=== PATIENT | male | born 1935 | race Caucasian/White ===

== ENCOUNTER 2020-06-13 16:39 | Inpatient (IN) | payer BC ==
[~2020-06-13] VITALS: Ht 170.2 cm; Wt 101.2 kg
[~2020-06-13 16:39] MED LIST: ADULT LOW DOSE81 MG PO; ALDACTONE25 MG PO; ATENOLOL 50MG T50 M1 PO; DITROPAN XL15 MG PO; EQ VISION FORM1 EACH PO; FIBER THERAPY PO; FISH OIL 1,2001 EAC4 PO; GLUCOSAMINE 1,1 EACH PO; K-DUR 20 MEQ T20 MEQ PO; KOMBIGLYZE XR1 EAC1 PO; NEXIUM20 M1 PO; NORCO 5-325 TA1 EACH PO; XALATAN2.5 ML PO; ZOCOR40 MG PO
[2020-06-13 16:51] VITALS: BP 131/82
[2020-06-13 18:40] LABS: URINE BILIRUBIN NEGATIVE (Negative); URINE BLOOD 2+ (Negative); URINE CLARITY CLEAR; URINE COLOR YELLOW; URINE GLUCOSE-RANDOM NEGATIVE (Negative); URINE KETONES TRACE (Negative); URINE LEUKOCYTES-REFLEX NEGATIVE (Negative); URINE NITRITE-REFLEX NEGATIVE (Negative); URINE PROTEIN NEGATIVE (Negative); URINE SPECIFIC GRAVITY >= 1.030 (1.005-1.030); URINE UROBILINOGEN 0.2 E.U./dl (0.2-1.0)
[2020-06-13 18:43] LABS: CALCIUM 9.2 mg/dL (8.5-10.1); CREATININE 1.3 mg/dL (0.6-1.3); POTASSIUM 4.4 mmol/L (3.5-5.1)
[2020-06-13 18:47] LABS: ALBUMIN 3.6 g/dL (3.4-5.0); TOTAL BILIRUBIN 0.8 mg/dL (<0.1-1.0); TOTAL PROTEIN 6.9 g/dL (6.4-8.2)
[2020-06-13 18:54] LABS: CASTS None Seen /LPF (None Seen); CRYSTALS None Seen /LPF (None Seen); SQUAMOUS 0-3 Few /LPF (0-3)
[2020-06-13 18:55] LABS: URINE WBC-REFLEX 0-5 Rare /HPF (0-5)
[2020-06-13 18:56] LABS: BACTERIA-REFLEX 1-9 Few /HPF (None Seen); MUCUS >6 Heavy strn/LPF (None Seen)
[2020-06-13 19:23] LABS: ABSOLUTE BASOPHILS 0.2 thou/uL (0.0-0.2); ABSOLUTE EOSINOPHILS 0.1 thou/uL (0.0-0.7); ABSOLUTE LYMPHOCYTES 1.4 thou/uL (0.8-5.3); ABSOLUTE MONOCYTES 0.4 thou/uL (0.0-1.2); ABSOLUTE NEUTROPHILS 4.8 thou/uL (1.6-8.1); BASOPHILS 2.7 %; EOSINOPHILS 2.1 %; HEMATOCRIT 39.7 % (42.0-52.0); HEMOGLOBIN 13.5 gm/dL (14.0-18.0); LYMPHOCYTES 19.7 %; MCH 31.9 pg (26.0-34.0); MCHC 33.9 g/dL (28.0-37.0); MCV 94.1 fL (80.0-100.0); MONOCYTES 6.2 %; MPV 8.6 fl. (7.2-11.1); NUCLEATED RBCS 0 /100WBC; PLATELET COUNT* 127 thou/uL (150-400); POLYS 69.3 %; RBC 4.22 mil/uL (4.50-6.00); RDW-CV 13.8 % (10.5-14.5); WBC 6.9 thou/uL (4.0-11.0)
[2020-06-13 22:48] LABS: APTT 23.2 Seconds (25.0-31.3); INR 1.3; PROTIME 13.3 Seconds (9.20-11.50)
[2020-06-13 23:37] VITALS: BP 146/70
[2020-06-14 00:30] VITALS: BP 157/71
[2020-06-14 04:44] VITALS: BP 140/70
[2020-06-14 09:10] VITALS: BP 138/70
[2020-06-14 12:30] VITALS: BP 149/70
[2020-06-14 13:41] LABS: CALCIUM 8.5 mg/dL (8.5-10.1); CREATININE 1.1 mg/dL (0.6-1.3); MAGNESIUM 1.8 mg/dL (1.8-2.4); POTASSIUM 4.5 mmol/L (3.5-5.1)
[2020-06-14 16:00] VITALS: BP 103/56
[2020-06-14 19:40] LABS: URINE BILIRUBIN NEGATIVE (Negative); URINE BLOOD NEGATIVE (Negative); URINE CLARITY CLEAR; URINE COLOR YELLOW; URINE GLUCOSE-RANDOM NEGATIVE (Negative); URINE KETONES NEGATIVE (Negative); URINE LEUKOCYTES-REFLEX NEGATIVE (Negative); URINE NITRITE-REFLEX NEGATIVE (Negative); URINE PROTEIN NEGATIVE (Negative); URINE SPECIFIC GRAVITY 1.015 (1.005-1.030); URINE UROBILINOGEN 0.2 E.U./dl (0.2-1.0)
[2020-06-14 20:00] VITALS: BP 122/56
[2020-06-15] VITALS: BP 162/68
[2020-06-15 04:00] VITALS: BP 151/50
[2020-06-15 07:30] VITALS: BP 155/65
[2020-06-15 10:26] LABS: ABSOLUTE EOSINOPHILS 0.2 thou/uL (0.0-0.7); ABSOLUTE LYMPHOCYTES 1.7 thou/uL (0.8-5.3); ABSOLUTE MONOCYTES 0.5 thou/uL (0.0-1.2); ABSOLUTE NEUTROPHILS 3.8 thou/uL (1.6-8.1); BASOPHILS 0.6 %; EOSINOPHILS 3.4 %; HEMOGLOBIN 13.1 gm/dL (14.0-18.0); LYMPHOCYTES 26.9 %; MCH 31.9 pg (26.0-34.0); MCHC 33.6 g/dL (28.0-37.0); MCV 94.8 fL (80.0-100.0); NUCLEATED RBCS 0 /100WBC; PLATELET COUNT* 129 thou/uL (150-400); POLYS 61.1 %; RBC 4.12 mil/uL (4.50-6.00); RDW-CV 13.9 % (10.5-14.5); WBC 6.3 thou/uL (4.0-11.0)
--- NOTE | 2020-06-15 10:26 | EKG ---
[place] [address] ELECTROCARDIOGRAM REPORT Name: LORETTA PEÑA Room: [address] ADM IN .R.#: [id number] Admission: 06/13/20 Attend Phys: Steve Mckenzie Discharge: Date of : 31 Date of Service: 06/13/20 184 Report #: [id number] THIS REPORT FOR: //name// [facility] ED Test Date: 2020-06-13 Test Time: 18:44:58 Pat Name: LORETTA PEÑA Department: Room: [facility] Gender: M [employer] Offbearer: : 1935 Requested By: Aditi Cason Order Number: [id number] MD: Ari Palomino Measurements Intervals [place] Rate: 52 P: 84 MD: 227 QRS: 36 QRSD: 155 T: 3 QT: 473 QTc: 440 Interpretive Statements Sinus bradycardia Prolonged MD interval Right bundle branch block Abnormal inferior Q waves Baseline wander in lead(s) I,II,aVR,aVL Compared to ECG 04/30/2014 09:37:30 no change Electronically Signed On 06-15-2020 10:26:18 CDT by Ari Palomino [email or web address] <ELECTRONICALLY SIGNED> By: Ari Palomino MD, FACC 06/15/20 1026 1844 1844 Ari Palomino MD, FACC /EPI
[2020-06-15 11:30] VITALS: BP 155/65
== END 2020-06-15 12:04 | disposition home or self-care (01) | DRG 301 ==
LOC: M.ERS 16:39 → M.TBA-ER 21:36 → M.2W 21:36
PROVIDERS: Nurse Practitioner Family; ADMIT Internal Medicine; ATTEND Internal Medicine
DX: I71.02 Dissection of abdominal aorta (principal); I71.4 Abdominal aortic aneurysm, without rupture; N20.0 Calculus of kidney; D69.6 Thrombocytopenia, unspecified; K21.9 Gastro-esophageal reflux disease without esophagitis; I10 Essential (primary) hypertension; E11.9 Type 2 diabetes mellitus without complications; N40.0 Benign prostatic hyperplasia without lower urinary tract symptoms; Z96.643 Presence of artificial hip joint, bilateral; Z96.1 Presence of intraocular lens; Z20.828 Contact with and (suspected) exposure to other viral communicable diseases; Z98.42 Cataract extraction status, left eye; Z90.49 Acquired absence of other specified parts of digestive tract; Z98.41 Cataract extraction status, right eye; Z79.899 Other long term (current) drug therapy; Z79.82 Long term (current) use of aspirin; Z87.891 Personal history of nicotine dependence

== ENCOUNTER → 2020-09-16 | Outpatient (CLI) | payer BC ==
[2020-09-16 13:25] LABS: CREATININE 1.4 mg/dL (0.6-1.3)
== END ==
LOC: M.LAB 09:24 → M.CT 14:00
PROVIDERS: ATTEND Surgery Vascular Surgery
DX: N28.1 Cyst of kidney, acquired (principal); I25.10 Atherosclerotic heart disease of native coronary artery without angina pectoris; N13.30 Unspecified hydronephrosis; I70.0 Atherosclerosis of aorta; I71.02 Dissection of abdominal aorta; Z96.643 Presence of artificial hip joint, bilateral